=== PATIENT | male | born 2005 | race Hispanic/Latino ===

== ENCOUNTER 2024-07-15 20:11 | Emergency (ER) | payer OTHER, SELFPAY | END 2024-07-15 22:50 | disposition home or self-care (01) | LOC: CSHERS 20:11 | DX: S62.630A Displaced fracture of distal phalanx of right index finger, initial encounter for closed fracture (principal); W01.0XXA Fall on same level from slipping, tripping and stumbling without subsequent striking against object, initial encounter; Y93.66 Activity, soccer | CPT/HCPCS: 26750 ==